=== PATIENT | female | born 1985 | race African-American/Black ===

== ENCOUNTER 2021-11-20 14:05 | Observation (INO) | payer MEDICAID, MEDICARE ==
[~2021-11-20] VITALS: Ht 165.1 cm; Wt 108.9 kg
[2021-11-20] MEDS: CLINDAMYCIN 900 MG PREMIX 50 ML IV SCH (16:55)
[2021-11-20 16:56] LABS: HEMATOCRIT 31.2 % (36.0-48.0); HEMOGLOBIN 10.7 g/dL (12.0-16.0); MEAN CORPUSCULAR HEMOGLOBIN 30.9 pg (28.0-32.0); MEAN CORPUSCULAR VOLUME 90.4 fL (81.0-99.0); PLATELET 325 x1000/uL (130-400); RED BLOOD CELL COUNT 3.45 mill/uL (4.2-5.4); RED CELL DISTRIBUTION WIDTH 14.4 % (11.6-14.6)
[2021-11-20] MEDS: LACTATED RINGERS 1,000 ML IV SCH ×2 (16:56→20:38)
[2021-11-20 17:20] LABS: CLARITY URINE TURBID (CLEAR); COLOR URINE YELLOW (YELLOW); KETONES URINE 4+ (NEGATIVE); LEUKOCYTE ESTERASE URINE 3+ (NEGATIVE); NITRITE URINE POSITIVE (NEGATIVE); OCCULT BLOOD URINE 2+ (NEGATIVE); PH URINE 5.5 (4.5-8.0); PROTEIN URINE 2+ (NEGATIVE); SPECIFIC GRAVITY URINE 1.018 (1.005-1.030)
[2021-11-21] MEDS: CLINDAMYCIN 900 MG PREMIX 50 ML IV SCH ×2 (00:38→09:18)
[2021-11-21] MEDS ORDERED: GENTAMICIN 120MG PREMIX 100 ML IV SCH (10:00)
== END 2021-11-21 10:30 | disposition home or self-care (01) ==
LOC: OBSVTOIN 14:05 → 8 EST LDRP 14:05 → INTOOBSV 14:05 → 8 EST A/PP 11-21 08:13
PROVIDERS: ADMIT Obstetrics & Gynecology; ATTEND Obstetrics & Gynecology
DX: O23.02 Infections of kidney in pregnancy, second trimester (principal); N12 Tubulo-interstitial nephritis, not specified as acute or chronic; O99.891 Other specified diseases and conditions complicating pregnancy; M54.9 Dorsalgia, unspecified; Z87.440 Personal history of urinary (tract) infections; Z3A.24 24 weeks gestation of pregnancy
CPT/HCPCS: 36415; 59025; 76805; 81003; 85027; 87077; 87086; 87186; 87426; 96361; 96365; 96366; 96367; G0378; J1580; J3490; J7120; 96360; 99281